=== PATIENT | male | born 1950 | race Caucasian/White ===

== ENCOUNTER 2024-04-26 20:32 | Emergency (ER) | payer OTHER ==
[2024-04-26 20:56] VITALS: BP 122/83; PULSE 109; RESP 16; BMI 29.2
[2024-04-26 23:47] VITALS: TEMP 100.9
[2024-04-26 23:49] LABS: VENOUS BASE EXCESS -0.2 mmol/L (-2-2); VENOUS O2 SATURATION 56.8 % (70-80); VENOUS PCO2 42.7 mmHg (38-52); VENOUS PH 7.385 (7.310-7.410)
[2024-04-26] MEDS ORDERED: ACETAMINOPHEN INJECTION 100 ML ONE (23:50)
[2024-04-26 23:53] LABS: BASO % 0.9 % (0-2.0); EOS % 0.1 % (0-4.5); HEMATOCRIT 48.4 % (35.4-49); HEMOGLOBIN 16.2 GM/dL (11.7-16.9); MCHC 33.4 g/dl (32.0-35.9); MEAN CELL VOLUME 86.7 fl (80-96); MEAN PLT VOLUME 9.5 fl (7.5-11.1); PLATELET COUNT 229 10^3/uL (134-434); RBC 5.58 M/mm3 (4.00-5.60); RDW 13.8 % (11.9-15.9); WHITE BLOOD COUNT 10.4 K/mm3 (4.0-10.0)
[2024-04-26] MEDS: ACETAMINOPHEN 1000 MG/100 ML BAG IVPB ONE (23:58)
[2024-04-26] MEDS: LACTATED RINGERS SOLUTION 1000 ML INFUS.BAG IV ONE (23:58)
[2024-04-26 23:59] LABS: INR 1.07 (0.83-1.09); PROTHROMBIN TIME (PATIENT) 12.1 SEC (9.7-13.0)
[2024-04-27 00:02] LABS: ACTIVATED PTT 32.7 SECONDS (25.2-36.5)
[2024-04-27 00:11] LABS: POTASSIUM 4.2 mmol/L (3.5-5.1)
[2024-04-27 00:13] LABS: CALCIUM 9.5 mg/dL (8.5-10.1)
[2024-04-27 00:14] LABS: MAGNESIUM 2.4 mg/dL (1.8-2.4)
[2024-04-27 00:17] LABS: CREATININE 1.5 mg/dL (0.55-1.3)
[2024-04-27 00:18] LABS: BILIRUBIN,TOTAL 0.6 mg/dL (0.2-1); TOT PROT 8.4 g/dl (6.4-8.2)
[2024-04-27 01:49] LABS: EPI CELLS 1 /uL (0-25.1); HYALINE CASTS 0 /uL (0-3.1); PH,URINE 5.5 (5.0-8.0); URINE APPEARANCE CLEAR; URINE BACTERIA 27 /uL (0-1359); URINE BILIRUBIN NEGATIVE (NEGATIVE); URINE COLOR YELLOW; URINE GLUCOSE (UA) NEGATIVE (NEGATIVE); URINE KETONE NEGATIVE (NEGATIVE); URINE LEUK ESTERASE NEGATIVE (NEGATIVE); URINE NITRITE NEGATIVE (NEGATIVE); URINE PROTEIN TRACE (NEGATIVE); URINE RBC 15 /uL (0-23.9); URINE UROBILINOGEN 0.2 mg/dL (0.2-1.0); URINE WBC 4 /uL (0-25.8)
== END 2024-04-27 02:17 | disposition home or self-care (01) ==
LOC: JER 20:32
PROC: 3E033NZ Introduction of Analgesics, Hypnotics, Sedatives into Peripheral Vein, Percutaneous Approach (ICD-10-PCS; principal; 2024-04-26)
DX: R53.1 Weakness (principal); U07.1 COVID-19; R05.9 Cough, unspecified; R50.9 Fever, unspecified
CPT/HCPCS: 0241U-QW; 36415; 70450-TC; 71045-TC-FY; 80053; 81003; 82803; 82962; 83605; 83735; 84484; 85025; 85610; 85730; 86850; 86900; 86901; 87086; 93005; 93010; 96374; 99285-25; J0131